=== PATIENT | male | born 1990 | race African-American/Black ===

== ENCOUNTER 2017-02-27 14:34 | Emergency (ER) | payer MEDICAID, OTHER ==
[2017-02-27] VITALS (7 sets, daily range): BP systolic 155–170; BP diastolic 98–109
[~2017-02-27] VITALS: Ht 175.3 cm; Wt 73.0 kg
[~2017-02-27 14:34] MED LIST: ATOR40TA70 PO; FERR-63 PO; INSASP; METO-396 PO; NIFE60TA64 PO
[2017-02-27 15:23] LABS: BASOPHILS % 1.4 % (0.0-2.0); CHLORIDE 93 mEq/L (98-107); EOSINOPHILS % 3.4 % (0.0-5.0); HEMATOCRIT. 32.7 % (42.0-52.0); HEMOGLOBIN. 10.1 g/dL (14.0-18.0); LYMPHOCYTES % 13.9 % (20.0-50.0); MEAN CORPUSCULAR HEMOGLOBIN 26.2 pg (28.0-32.0); MEAN CORPUSCULAR VOLUME 84.8 fL (80.0-94.0); MEAN PLATELET VOLUME 8.9 fl (7.4-10.4); MONOCYTES % 8.1 % (2.0-8.0); NEUTROPHILS % 73.2 % (40.0-76.0); PLATELET 343 x1000/uL (130-400); RED BLOOD CELL COUNT 3.85 mill/uL (4.7-6.1)
[2017-02-27 15:24] LABS: INR 1.1; PARTIAL THROMBOPLASTIN TIME 24.1 sec (23.4-31.0); PROTHROMBIN TIME 10.9 sec (9.4-11.6)
[2017-02-27 15:25] LABS: CARBON DIOXIDE 24 mEq/L (21-32)
[2017-02-27] MEDS ORDERED: HEPARIN 1000 UNITS/ML 10ML ONE (15:28)
[2017-02-27] MEDS ORDERED: CEFAZOLIN 1000MG PREMIX 50 ML IV ONE ×2 (15:28→15:45)
[2017-02-27] MEDS ORDERED: SODIUM BICARBONATE 4% (2.4MEQ) 5ML VIAL IV ONE (15:28)
[2017-02-27 15:32] LABS: TROPONIN I 0.03 ng/mL (0.00-0.04)
[2017-02-27] MEDS ORDERED: FENTANYL CITRATE/PF 50MCG/ML 2ML VIAL ONE (15:55)
[2017-02-27] MEDS ORDERED: FENTANYL CITRATE/PF 50MCG/ML 2ML VIAL IV ONE (16:15)
[2017-02-27] MEDS ORDERED: INSULIN REGULAR (HUMULIN R) 300UNITS/3ML SUBCUT ONE (17:00)
== END 2017-02-27 19:22 | disposition home or self-care (01) ==
LOC: ER 15:02
DX: T82.49XA Other complication of vascular dialysis catheter, initial encounter (principal); I12.0 Hypertensive chronic kidney disease with stage 5 chronic kidney disease or end stage renal disease; N18.6 End stage renal disease; E11.9 Type 2 diabetes mellitus without complications; I45.81 Long QT syndrome; Z79.4 Long term (current) use of insulin; Z99.2 Dependence on renal dialysis; Z88.8 Allergy status to other drugs, medicaments and biological substances; Z98.890 Other specified postprocedural states; Y92.89 Other specified places as the place of occurrence of the external cause
CPT/HCPCS: 36415; 36581; 71010; 77001; 80053; 82962; 83690; 84484; 85025; 85610; 85730; 93005; 96365; 96372; 96375; 99285; C1750; C1769; J0690; J1644; J1815; J3010; J3490; Z7610

== ENCOUNTER 2017-03-04 18:53 | Emergency (ER) | payer MEDICAID, OTHER ==
[~2017-03-04] VITALS: Ht 177.8 cm; Wt 68.0 kg
[2017-03-04] MEDS ORDERED: ASPIRIN 81MG TABLET PO ONE (20:15)
[2017-03-04] MEDS ORDERED: NITROGLYCERIN OINT 1GM/INCH UDPKT TD ONE (20:15)
[2017-03-04] MEDS ORDERED: LABETALOL HCL 200MG TABLET PO STA ×2 (20:21→20:35)
[2017-03-04] MEDS ORDERED: HYDROCODONE/ACETAMINOPHEN 10/325MG TABLET PO ONE (20:30)
[2017-03-04 20:34] LABS: BASOPHILS % 2.4 % (0.0-2.0); HEMATOCRIT. 33.6 % (42.0-52.0); HEMOGLOBIN. 10.4 g/dL (14.0-18.0); MEAN CORPUSCULAR HEMOGLOBIN 25.8 pg (28.0-32.0); MEAN PLATELET VOLUME 8.1 fl (7.4-10.4); MONOCYTES % 5.6 % (2.0-8.0); PLATELET 266 x1000/uL (130-400); RED BLOOD CELL COUNT 4.05 mill/uL (4.7-6.1); RED CELL DISTRIBUTION WIDTH 18.5 % (11.6-14.6)
[2017-03-04 20:40] LABS: INR 1.1; PROTHROMBIN TIME 11.7 sec (9.4-11.6)
[2017-03-04 20:49] LABS: CARBON DIOXIDE 27 mEq/L (21-32); CHLORIDE 95 mEq/L (98-107); ETHANOL BLOOD < 10 mg/dL
[2017-03-04 20:50] LABS: TROPONIN I 0.04 ng/mL (0.00-0.04)
[2017-03-04] MEDS ORDERED: INSULIN REGULAR (HUMULIN R) 300UNITS/3ML SUBCUT SCH (21:15)
[2017-03-04 21:50] VITALS: BP 217/134
== END 2017-03-04 22:00 | disposition home or self-care (01) ==
LOC: ER 18:53 → CANBEDREQ 03-05 00:21
DX: I12.9 Hypertensive chronic kidney disease with stage 1 through stage 4 chronic kidney disease, or unspecified chronic kidney disease (principal); E11.65 Type 2 diabetes mellitus with hyperglycemia; E11.22 Type 2 diabetes mellitus with diabetic chronic kidney disease; N18.9 Chronic kidney disease, unspecified; R07.9 Chest pain, unspecified; I16.0 Hypertensive urgency; Z99.2 Dependence on renal dialysis; Z79.4 Long term (current) use of insulin; Z79.82 Long term (current) use of aspirin
CPT/HCPCS: 36415; 71010; 80053; 83605; 83690; 84484; 85025; 85610; 93005; 99291; G0482; J1815